=== PATIENT | female | born 1995 | race Caucasian/White ===

== ENCOUNTER 2018-01-16 14:37 | Outpatient (REF) | payer MEDICAID, SELFPAY ==
--- NOTE | 2018-01-16 13:00 | PAPFT_PTH ---
PATIENT: SANDRA ROTHMAN LOC: [facility] U#:[id number] AGE/SX: 22/F ROOM: RE01/16/[address]: SOPHIE Willis : 1995 BED: DIS: 01/16/2018 SPEC #: [id number] RECD: 01/16/18 18:03 STATUS: GINA CROSS #: [id number] ANGELICA: 01/16/18 13:[address]: Stacie Sullivan DEPT: [facility] Cytology RECD BY: Jihan Machado Tissues: 1 - CX/ENDOCX FOR PAP SMEARS Procedures: PAP THIN PREP/[facility] Screening Comments: [id number]
[2018-01-17 18:03] LABS: Chlamydia Result Negative; GC Result Negative; Specimen Description CERVIX
== END 2018-01-16 14:57 ==
LOC: LBN 14:37
PROVIDERS: PCP Nurse Practitioner Family; Visit Provider Nurse Practitioner Family
DX: Z12.4 Encounter for screening for malignant neoplasm of cervix (principal); Z11.51 Encounter for screening for human papillomavirus (HPV); Z11.3 Encounter for screening for infections with a predominantly sexual mode of transmission
CPT/HCPCS: 87491; 87591; 88142